=== PATIENT | male | born 1990 | race Caucasian/White ===

== ENCOUNTER → 2020-06-08 | Outpatient (CLI) | payer BC ==
--- NOTE | 2020-06-08 10:55 | XR ---
EXAMINATION TYPE: XR abdomen 1V DATE OF EXAM: 06/08/2020 COMPARISON: NONE HISTORY: Abdominal pain kidney stone TECHNIQUE: One view abdominal series FINDINGS: The osseous structures are intact. The bowel gas pattern is nonspecific. Significant retained fecal debris limits assessment of the right kidney. Findings are suspicious for a calculus near the UPJ agustín suring approximately 4 mm. No suspicious calcifications overlying the left kidney. No suspicious calc ifications in the pelvis. IMPRESSION: 1. Nonspecific abdomen. Limited exam due to extensive overlying bowel content. However, findings elizabeth picious for a 4 mm calcification in the region of the right UPJ.
== END | disposition home or self-care (01) ==
LOC: RADXRMAIN 10:12
PROVIDERS: ATTEND Urology
DX: N20.1 Calculus of ureter (principal)
CPT/HCPCS: 74018

== ENCOUNTER 2022-06-12 12:17 | Day surgery (SDC) | payer BC ==
[2022-06-10 10:50] VITALS: BMI 22.9
--- NOTE | 2022-06-11 17:58 | P.GSHP ---
History of Present Illness H&P Date: 06/11/22 32 yo male with a history of stones recently began passing a stone. On the ct scan the stone was about 5 mm in the mid to proximal left ureter. He had a fu kub that was not conclusive in seeing the stone upon my review but since he was still having pain he was set up for left retrograde with probable ureteroscopy with laser lithotripsy - Constitutional Constitutional: Denies chills, Denies fever - EENT Eyes: denies blurred vision, denies pain Ears, nose, mouth and throat: Denies headache, Denies sore throat - Cardiovascular Cardiovascular: Denies chest pain, Denies shortness of breath - Respiratory Respiratory: Denies cough, Denies 7 - Gastrointestinal Gastrointestinal: Denies abdominal pain, Denies diarrhea, Denies nausea, Denies vomiting - Genitourinary (Female) Genitourinary: Denies dysuria, Denies hematuria - Genitourinary (Male) Genitourinary: Denies dysuria, Denies hematuria - Musculoskeletal Musculoskeletal: Denies myalgias - Integumentary Integumentary: Denies pruritus, Denies rash - Neurological Neurological: Denies numbness, Denies weakness - Psychiatric Psychiatric: Denies anxiety, Denies depression - Endocrine Endocrine: Denies fatigue, Denies weight change Past Medical History Past Medical History: Seizure Disorder Additional Past Medical History / Comment(s): seizures as a child ., kidney stones History of Any Multi-Drug Resistant Organisms: None Reported Past Surgical History: Tonsillectomy Additional Past Surgical History / Comment(s): Deviated Septum , lithotripsy Past Anesthesia/Blood Transfusion Reactions: No Reported Reaction Past Psychological History: No Psychological Hx Reported Smoking Status: Never smoker Past Alcohol Use History: Occasional Past Drug Use History: None Reported - Past Family History Mother Family Medical History: No Reported History Medications and Allergies Home Medications Medication Instructions Recorded Confirmed Type Hydrocodone/Acetaminophen 1 tab PO Q4HR PRN 06/10/22 06/10/22 History [Hydrocodone/Acetaminophen 5-325] Ketorolac [Toradol] 10 mg PO Q6HR 06/10/22 06/10/22 History Tamsulosin HCl [Flomax] 0.4 mg PO DAILY 06/10/22 06/10/22 History Allergies Allergy/AdvReac Type Severity Reaction Status Date / Time No Known Allergies Allergy Verified 06/10/22 10:22 Results - Imaging Abdominal x-ray: report reviewed, image reviewed CT scan - abdomen: report reviewed, image reviewed CT scan - pelvis: report reviewed, image reviewed Assessment and Plan Assessment: Impression: left ureteral stone Plan: left ureteroscopy with laser lithotripsy
[~2022-06-12 12:17] MED LIST: DEXAMETHASONE SOD PHOSPHATE 4 MG/ML 1 ML VIAL IV ONE; HYDROmorphone 0.5 MG/0.5 ML SYRINGE IVP PRN; LACTATED RINGERS 1,000 ML IV SCH; LIDOCAINE 1% (10MG/ML) FOR IV START INTRADERMA PRN; ONDANSETRON 4 MG/2 ML VIAL IVP ONE
--- NOTE | 2022-06-12 12:55 | XR ---
EXAMINATION TYPE: XR KUB DATE OF EXAM: 06/12/2022 HISTORY: Pain Comparison: None.Single KUB is submitted for interpretation. Findings: Right renal calculi: None Visualized. Right ureteral calculi: None Visualized. Left renal calculi: None Visualized. Left ureteral calculi: None Visualized. Pelvic calcifications: None Visualized. Bowel gas pattern is unremarkable. No free air. No mass effects. IMPRESSION: 1. No visible stones at this time. Examination is limited by bowel content overlying the right kidney .
[2022-06-12] MEDS ORDERED: LIDOCAINE 2% INJ 20 MG/ML (2 ML VIAL) ONE (13:14)
[2022-06-12] MEDS ORDERED: fentaNYL (PF) 50 MCG/ML 2 ML AMP ONE (13:14)
[2022-06-12] MEDS ORDERED: MIDAZOLAM 2 MG/2 ML VIAL ONE (13:14)
[2022-06-12] MEDS ORDERED: PROPOFOL 10 MG/ML 20 ML VIAL IV ONE (13:14)
[2022-06-12] MEDS ORDERED: IOPAMIDOL-370 50ML BTL IRRIGATION ONE (13:42)
--- NOTE | 2022-06-12 14:01 | P.OP ---
Date of Procedure: 06/12/22 Preoperative Diagnosis: Left ureteral calculus Postoperative Diagnosis: Same, passed Procedure(s) Performed: Cystoscopy, attempted left retrograde pyelogram, left ureteroscopy Anesthesia: BIA Surgeon: Alex Fermin Estimated Blood Loss (ml): 0 Pathology: none sent Condition: stable Disposition: PACU Indications for Procedure: Patient is 32. He recently was in the emergency room with a 5 mm proximal the left mid ureteral stone. He was still having pain when I see him in the office. A KUB was obtained but no stone was obviously seen. The pain was primarily on the flank consistent with a more proximal stone. Discussed treatment options and we decided proceed with cystoscopy left retrograde pyelogram and ureteroscopy. The pain has been gone now for 48 hours and I offered him the option of not proceeding but he does not want to go home and come back if the stone is still there. I thus we'll do a cystoscopy left retrograde pyelogram Description of Procedure: The patient is brought to the operating suite. He is given a general LMA anesth etic. He's placed lithotomy position with sterile prep and drape. Cystoscopy Foroblique lens and 21-Bahamian sheath identifies a normal anterior urethra. The prostates unremarkable. The bladder is inspected. The right orifice is normal. The left is very edematous and mounded consistent with a stone in the intramural tunnel. I attempted to do a left retrograde pyelogram but due to the edema from the probable stone in the intramural tunnel I'm unable to do so. Gently unable to pass the 7-Bahamian mini ureteroscope into the orifice and pass the scope proximally without identification of the stone. I easily passed a stone up to the UPJ and there is no stone I do a pullout ureteroscopy and there is no stone. Then the procedure the ureteroscope is removed the bladder is drained and the patient's awakened and returned to recovery in good condition Impression: The patient has passed a stone. Based on the edema the ureteral orifice I suspect it has been relatively recently . The patient will be discharged home upon recovery and follow in the office in one week to discuss stone formation.
[2022-06-12 14:10] VITALS: RESP 16; TEMP 96.8
--- NOTE | 2022-06-12 14:15 | FL ---
EXAMINATION TYPE: FL guidance operating room DATE OF EXAM: 06/12/2022 HISTORY: Fluoroscopy time 27 seconds of fluoroscopy provided. IMPRESSION: 1. Fluoroscopy time.
[2022-06-12 14:35] VITALS: PULSE 44
[2022-06-12 14:45] VITALS: BP 114/79
== END 2022-06-12 15:13 | disposition home or self-care (01) ==
LOC: OR 12:17
PROVIDERS: ATTEND Urology
DX: N20.1 Calculus of ureter (principal); G40.909 Epilepsy, unspecified, not intractable, without status epilepticus; Z79.1 Long term (current) use of non-steroidal anti-inflammatories (NSAID); Z87.442 Personal history of urinary calculi
CPT/HCPCS: 74018; 52351; J2250; J1100; J0690; J2405; J3010; J2704; Q9967; J2001